=== PATIENT | female | born 1975 | race Caucasian/White ===

== ENCOUNTER 2018-11-20 05:19 | Emergency (ER) | payer OTHER ==
[2018-11-20 05:53] VITALS: BMI 23.1
[2018-11-20] MEDS ORDERED: ALBUTEROL SO4 2.5/IPRATROPIUM 0.5 INH SOL 3 ML VIAL.NEB. NEB ONE ×2 (08:08→08:12)
--- NOTE | 2018-11-20 08:18 | PDOC ---
History of Present Illness - General Chief Complaint: Cold Symptoms Stated Complaint: COUGHING, SOB Time Seen by Provider: 11/20/18 07:15 History Source: Patient Exam Limitations: No Limitations - History of Present Illness Initial Comments: 11/20/18 08:09 43y F hx of seasonal allergies presents with complaint of nonproductive cough for the last month. The cough is tends to be worse in the evening. There is some chest pain when she is coughing, but she denies any campbell, hemoptysis, leg swelling, recent sick contacts/travel. Pt notes some mucus in her nose intermittently. denies any body aches, back pain, abd pain, vomiting, diarrheam melena, bpr, calf pain. 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 Constitutional - no reported Fever, Chills, HEENT: no reported vision changes, sore throat Respiratory: +cough, no reported sob, hemoptysis Cardiac: no reported chest pain, palpitations, light headedness, leg swelling Abd/GI: no reported abd pain, nausea, vomiting, blood per rectum, melena, diarrhea : no reported dysuria, frequency, discharge Musculskelatal - no reported back pain, joint swelling skin - no reported bruising, erythema, rash neurological: no reported headache, numbness, focal weakness, tingling, ataxia, hematologic: no reported easy bruising, easy bleeding GENERAL: The patient is awake, alert, and fully oriented, Nontoxic - in no acute distress. HEAD: Normocephalic, atraumatic. EYES: extraocular movements intact, sclera anicteric, conjunctiva clear. ENT: Normal voice, Moist mucous membranes. NECK: Normal range of motion, supple LUNGS: Breath sounds equal, clear to auscultation bilaterally. No wheezes, no rhonchi, no rales. HEART: Regular rate and rhythm, normal S1 and S2 without murmur, rub or gallop. ABDOMEN: Soft, nontender, No guarding, no rebound. No CVA tenderness EXTREMITIES: Normal range of motion, no edema. note calf tenderness, negative Homans sign NEUROLOGICAL: No facial assymetry, Normal speech, PSYCH: Normal mood, normal affect. SKIN: Warm, Dry, normal turgor, differential for the patient's cough includes viral syndrome, versus bronchus spasm onsider possible pneumonia, chemical pneumonitis will obtain cxr to r/o pna ekg to scren for acs will give a duo neb to see if it may help with bronchospasm Past History - Past Medical History Allergies/Adverse Reactions: Allergies Allergy/AdvReac Type Severity Reaction Status Date / Time aspirin Allergy Verified 01/11/18 17:24 Home Medications: Ambulatory Orders Albuterol Sulfate Inhaler - [Ventolin HFA Inhaler -] 1 - 2 inh PO Q4H PRN #1 inhaler 11/20/18 Benzonatate [Tessalon Pearls -] 100 mg PO TID PRN #21 capsule 11/20/18 COPD: No - Surgical History Abdominal Surgery: Yes (hernia repair) - Suicide/Smoking/Psychosocial Hx Smoking History: Never smoked Have you smoked in the past 12 months: No Information on smoking cessation initiated: No Hx Alcohol Use: No Drug/Substance Use Hx: No *Physical Exam - Vital Signs Last Vital Signs Temp Pulse Resp BP Pulse Ox 98.7 F 80 16 99/60 97 11/20/18 05:19 11/20/18 07:57 11/20/18 07:57 11/20/18 07:57 11/20/18 07:57 Heart Score/ECG Review - ECG Impressions Comment:: 11/20/18 10:02 Twelve-lead EKG was performed and reviewed by me. There is normal sinus rhythm with a normal rate. rate of 71 ED Treatment Course - RADIOLOGY Radiology Studies Ordered: Category Date Time Status CHEST PA & LAT [RAD] Stat Radiology 11/20/18 08:08 Ordered Medical Decision Making - Medical Decision Making 11/20/18 09:56 he patient is feeling improved the patient's chest x-ray is negative. will dc her with al albuterol pump - her sx may be due to work environment as she states coughing is worse at work and improves when she leaves the premesis. will have her use appropriate protection will have her fu with pmd return precautions were discussed I discussed the physical exam findings, ancillary test results and final diagnoses with the patient. I answered all of the patient's questions. The patient was satisfied with the care received and felt comfortable with the discharge plan and treatment plan. The patient will call their primary care physician within 24 hours to arrange follow-up and will return to the Emergency Department with any new, persistent or worsening symptoms. *DC/Admit/Observation/Transfer Diagnosis at time of Disposition: Cough - Discharge Dispostion Disposition: HOME Condition at time of disposition: Improved Decision to Admit order: No - Prescriptions Prescriptions: Albuterol Sulfate Inhaler - [Ventolin HFA Inhaler -] 1 - 2 inh PO Q4H PRN #1 inhaler PRN Reason: Cough Benzonatate [Tessalon Pearls -] 100 mg PO TID PRN #21 capsule PRN Reason: Cough - Referrals Referrals: [facility] [Provider Group] - Patient Instructions Printed Discharge Instructions: DI for Cough -- Adult Additional Instructions: Regrese al departamento de emergencias inmediatamente con CUALQUIER sntoma nuevo, persistente o que empeore, incluyendo empeoramiento de la respiracin, dolor en el pecho, fiebre o cualquier otra inquietud. Por favor, use la proteccin adecuada en el trabajo. Use el inhalador para mitchel si le ayuda con swenson tos. DEBE llamar y hacer un seguimiento con swenson mdico en 3 a 4 benitez para ramonita evaluacin adicional de oli sntomas. Los resultados fueron discutidos con usted. Asegrese de que swenson mdico revise los resultados de swenson evaluacin de emergencia. Swenson visita al Departamento de Emergencias no est completa sin un seguimiento con swenson mdico. Return to the emergency department immediately with ANY new, persistent or worsening symptoms ncluding worsening shortness of breath, chest pain,fever or any other concerns Please use the appropriate protection at work. Use the inhaler to see if helps with your cough. You MUST call and follow up with your doctor in 3-4 days for further evaluation of your symptoms. Results were discussed with you. Please make sure your doctor reviews the results of your emergency evaluation. Your Emergency Department visit is not complete without a follow up with your doctor. Print Language: YI - Post Discharge Activity
[2018-11-20 10:31] VITALS: BP 102/65; PULSE 75; TEMP 97.6
--- NOTE | 2018-11-20 15:17 | EKG ---
Test Reason : Blood Pressure : / mmHG Vent. Rate : 071 BPM Atrial Rate : 071 BPM P-R Int : 160 ms QRS Dur : 122 ms QT Int : 428 ms P-R-T Axes : 065 087 048 degrees QTc Int : 465 ms NORMAL SINUS RHYTHM RIGHT BUNDLE BRANCH BLOCK ABNORMAL ECG WHEN COMPARED WITH ECG OF 11-JAN-2018 18:38, NO SIGNIFICANT CHANGE WAS FOUND Confirmed by JOSEPH JULES MD ([id number]) on 11/20/2018 3:17:13 PM Referred By: Confirmed By:JOSEPH JULES MD
== END 2018-11-20 10:33 | disposition home or self-care (01) ==
LOC: JER 05:19
PROC: 3E0F7GC Introduction of Other Therapeutic Substance into Respiratory Tract, Via Natural or Artificial Opening (ICD-10-PCS; principal; 2018-11-20)
DX: R05 Cough (principal)
CPT/HCPCS: 71046-TC-FY; 93005; 93010; 99282-25

== ENCOUNTER 2019-02-02 15:44 | Emergency (ER) | payer OTHER ==
[2019-02-02 16:15] VITALS: BP 117/62; PULSE 84; TEMP 98.6; BMI 22.4
--- NOTE | 2019-02-02 16:20 | PDOC ---
History of Present Illness - General Chief Complaint: Shortness of Breath Stated Complaint: SOB - History of Present Illness Initial Comments: The pt is a 43F w/ a history of RBBB, HAs, and varicose veins s/p procedural correction in the [facility] who presents for evaluation of GORE, N/V, chest pain, SOB, dysuria, and left leg pain. The pt reports her GORE is global but worse on the left/frontal, throbbing, w/o sudden onset, associated with nausea and vomiting x1 today, and was mildly alleviated by Tylenol. Her chest pain and SOB began while at rest, the pain was a 'pinch', non-radiating, started at rest/resolved spontaneously, and is not exacerbated or alleviated by anything she can identify. Her left leg pain has been intermittent for the last 6 months, is where she had her varicose procedure, and is not exacerbated or alleviated by anything she can identify. She endorses dysuria. She denies fevers, vision changes, weakness, new changes in sensation, diarrhea , or blood in her stool. Denies OCP, cancer, recent travel, or history of DVT/PE 02/02/19 17:18 Past History - Past Medical History Allergies/Adverse Reactions: Allergies Allergy/AdvReac Type Severity Reaction Status Date / Time aspirin Allergy Verified 01/11/18 17:24 Home Medications: Ambulatory Orders Albuterol Sulfate Inhaler - [Ventolin HFA Inhaler -] 1 - 2 inh PO Q4H PRN #1 inhaler 11/20/18 Benzonatate [Tessalon Pearls -] 100 mg PO TID PRN #21 capsule 11/20/18 Metoclopramide HCl [Reglan -] 10 mg PO BID PRN #14 tablet 02/02/19 COPD: No - Surgical History Abdominal Surgery: Yes (hernia repair) - Psycho Social/Smoking Cessation Hx Smoking History: Never smoked Have you smoked in the past 12 months: No Hx Alcohol Use: No Drug/Substance Use Hx: No Review of Systems - Review of Systems Able to Perform ROS?: Yes Comments:: GENERAL/CONSTITUTIONAL: No fever or chills. No weakness HEAD, EYES, EARS, NOSE AND THROAT: No change in vision. No change in hearing. No sore throat CARDIOVASCULAR: +intermittent chest pain/SOB RESPIRATORY: Denies cough, hemoptysis GASTROINTESTINAL: +N/V; Denies diarrhea or constipation GENITOURINARY: +dysuria, denies frequency, or change in urination MUSCULOSKELETAL: No joint or muscle swelling or pain. No neck or back pain SKIN: No rash NEUROLOGIC: No headache, vertigo, loss of consciousness, or change in strength/ sensation ENDOCRINE: No increased thirst. No abnormal weight change HEMATOLOGIC/LYMPHATIC: No anemia, easy bleeding, or history of blood clots ALLERGIC/IMMUNOLOGIC: No hives or skin allergy 02/02/19 16:20 Is the patient limited Mauritanian proficient: Yes *Physical Exam - Vital Signs Last Vital Signs Temp Pulse Resp BP Pulse Ox 98.6 F 84 19 117/62 100 02/02/19 16:07 02/02/19 16:07 02/02/19 16:07 02/02/19 16:07 02/02/19 16:07 - Physical Exam Comments: GENERAL: Awake, alert, and oriented to person/place/time, in no acute distress HEAD: No signs of trauma, normocephalic, atraumatic EYES: PERRLA, EOMI, sclera anicteric, conjunctiva clear ENT: Hearing grossly normal, nares patent, oropharynx clear without exudates. Moist mucosa LUNGS: No distress, speaks in full sentences, clear to auscultation bilaterally HEART: Regular rate and rhythm, normal S1 and S2, no murmurs appreciated, peripheral pulses normal and equal bilaterally ABDOMEN: Soft, mild suprapubic TTP w/o rebound or guarding, normoactive bowel sounds EXTREMITIES: Normal inspection, Normal range of motion, no edema. No clubbing or cyanosis NEUROLOGICAL: Cranial nerves II through XII grossly intact. Normal speech, normal gait, no focal sensorimotor deficits SKIN: Warm, Dry 02/02/19 16:20 ED Treatment Course - LABORATORY CBC & Chemistry Diagram: 02/02/19 17:00 02/02/19 17:00 Medical Decision Making - Medical Decision Making The pt is a 43F w/ a history of RBBB and HAs who presents for evaluation of GORE, chest pain, SOB, dysuria, and left leg pain ED Course Labs sent ECG CXR IVF, benadryl, reglan, ofirmev, zofran for symptomatic relief Will reassess 02/02/19 17:25 Pt refused tylenol and zofran Lytes wnl No leukocytosis No anemia Trop I neg B-hCG neg ECG w/ RBBB (seen previously); no axis deviation, HR 78; QTc 478; no ischemic changes Pending UA, CXR 02/02/19 18:17 UA w/o evidence of UTI Pt feels improved Plan for D/C w/ PCP f/u Discharge instructions and return precautions given Pt in agreement and verbalized understanding Dispo: home 02/02/19 23:10 Discharge - Discharge Information Problems reviewed: Yes Clinical Impression/Diagnosis: Headache Qualifiers: Headache type: unspecified Headache chronicity pattern: unspecified pattern Intractability: not intractable Qualified Code(s): R51 - Headache Chest pain Qualifiers: Chest pain type: unspecified Qualified Code(s): R07.9 - Chest pain, unspecified Condition: Stable Disposition: HOME - Admission No - Additional Discharge Information Prescriptions: Metoclopramide HCl [Reglan -] 10 mg PO BID PRN #14 tablet PRN Reason: Headache - Follow up/Referral - Patient Discharge Instructions Patient Printed Discharge Instructions: DI for Migraine Additional Instructions: You were seen in the Emergency Department for evaluation of headache, chest pain , trouble breathing, and leg pain. Your labs and imaging were unremarkable. Review the handout provided at discharge. A prescription for Reglan was sent to the pharmacy that you specified. Take if the Tylenol is not sufficient for your headaches. Follow up with your primary care provider within a week. Return to the Emergency Department if you develop fevers/chills, vision changes, inability to tolerate liquids, blood in your stool or vomit, worsening symptoms , or any new/concerning symptoms. Usted fue visto en el Departamento de Emergencia para ramonita evaluacin de dolor de roel, dolor en el pecho, dificultad para respirar y dolor en las piernas. Meche laboratorios e imgenes no fueron notables. Revise el folleto proporcionado al bethany. Se envi ramonita receta para Reglan a la farmacia que especific. Tmelo si el Tylenol no es suficiente para meche verna de roel. Ko un seguimiento con swenson proveedor de atencin primaria dentro de ramonita semana. Regrese al Departamento de Emergencias si desarrolla fiebre / escalofros, cambios en la visin, incapacidad para tolerar lquidos, marsha en las heces o vmitos, empeoramiento de los sntomas o cualquier sntoma nuevo o preocupante. Print Language: CROATIAN - Post Discharge Activity
[2019-02-02] MEDS ORDERED: METOCLOPRAMIDE HCL INJECTION 10 MG/2 ML VIAL ONE (16:52)
[2019-02-02] MEDS ORDERED: METOCLOPRAMIDE HCL INJECTION 10 MG/2 ML VIAL IVPUSH ONE (17:06)
[2019-02-02] MEDS ORDERED: ONDANSETRON 4 MG/2 ML VIAL IVPUSH ONE (17:06)
[2019-02-02] MEDS ORDERED: ACETAMINOPHEN 1000 MG/100 ML VIAL (NON FORMULARY) IVPB ONE (17:06)
[2019-02-02] MEDS ORDERED: SODIUM CHLORIDE 0.9% 500 ML INFUS.BAG IV ONE (17:06)
[2019-02-02] MEDS ORDERED: ONDANSETRON 4 MG/2 ML VIAL ONE (17:15)
[2019-02-02 17:18] LABS: BASO % 0.7 % (0-2.0); EOS % 1.2 % (0-4.5); HEMATOCRIT 36.8 % (32.4-45.2); HEMOGLOBIN 12.1 GM/dL (10.7-15.3); LYMPH % 18.5 % (8-40); MCH 26.6 pg (25.7-33.7); MCHC 32.8 g/dl (32.0-36.0); MEAN PLT VOLUME 9.5 fl (7.5-11.1); MONO % 7.3 % (3.8-10.2); NEUT % 72.3 % (42.8-82.8); PLATELET COUNT 254 K/MM3 (134-434); RBC 4.54 M/mm3 (3.60-5.2); RDW 22.5 % (11.6-15.6); WHITE BLOOD COUNT 8.7 K/mm3 (4.0-10.0)
[2019-02-02 18:07] LABS: ALK PHOS 45 U/L (45-117); ANION GAP 7 MMOL/L (8-16); BILIRUBIN,TOTAL 0.4 mg/dL (0.2-1); CALCIUM 9.5 mg/dL (8.5-10.1); CHLORIDE 107 mmol/L (98-107); CO2 25 mmol/L (21-32); CREATININE 0.6 mg/dL (0.55-1.3); GLUCOSE,RANDOM 85 mg/dL (74-106); SGOT/AST 10 U/L (15-37); SGPT/ALT 16 U/L (13-61); SODIUM 139 mmol/L (136-145); TOT PROT 7.6 g/dl (6.4-8.2)
[2019-02-02 18:17] LABS: ANISOCYTOSIS 3+; PLATELET ESTIMATE NORMAL
--- NOTE | 2019-02-02 18:55 | PDOC ---
Documentation entered by Imani Mendez SCRIBE, acting as scribe for Jennifer De La Torre MD. Jennifer De La Torre MD: This documentation has been prepared by the Andrea cheng Brenda, SCRIBE, under my direction and personally reviewed by me in its entirety. I confirm that the documentation accurately reflects all work, treatment, procedures, and medical decision making performed by me. Attending Attestation - Resident Resident Name: MariongenovevaEverette - ED Attending Attestation I have performed the following: I have examined & evaluated the patient, The case was reviewed & discussed with the resident, I agree w/resident's findings & plan, Exceptions are as noted - HPI HPI: 02/02/19 17:45 The patient is a 43 year old female, with a significant PMH of right bundle branch block ad headaches who presents to the emergency department with complaints of a 1 day of a global headache associated with nausea and vomiting, which is worsened on the left side. Patient reports taking tylenol and being mildly alleviated. The patient also endorses chest pain with shortness of breath , which she notes began at rest and resolved suddenly, but is non-radiating, and not alleviated or aggravated by anything. She also endorses left leg pain, for the past 6 months, and dysuria. Daly Vision changes and weakness. Denies fever, diarrhea and constipation. Denies frequency, urgency and hematuria. Allergies: NKA Past surgical history: Hernia Repair Social history: No reported hx of tobacco use, alcohol use or illicit drug use. - Physicial Exam PE: 02/02/19 17:47 GENERAL: Well-appearing, well-nourished. No apparent distress. HEENT: Normocephalic, atraumatic. PERRL, EOM intact. CARDIOVASCULAR: Normal S1, S2. Regular rate and rhythm. PULMONARY: Clear to auscultation bilaterally. ABDOMEN: Soft, non-distended, non-tender. EXTREMITIES: Normal ROM in all four extremities. No gross deformities. SKIN: Warm, dry. No rash NEUROLOGICAL: No focal neurological deficits. - Medical Decision Making 02/02/19 18:28 ekg RBBB , 78 bpm 02/02/19 18:54 cbc no leukocytosis, no anemia chemistries unremarkable negative test
[2019-02-02 19:00] LABS: PH,URINE 5.5 (5.0-8.0); URINE APPEARANCE CLEAR; URINE BILIRUBIN NEGATIVE (NEGATIVE); URINE COLOR YELLOW; URINE GLUCOSE (UA) NEGATIVE (NEGATIVE); URINE KETONE TRACE (NEGATIVE); URINE LEUK ESTERASE NEGATIVE (NEGATIVE); URINE NITRITE NEGATIVE (NEGATIVE); URINE PROTEIN NEGATIVE (NEGATIVE); URINE UROBILINOGEN 0.2 mg/dL (0.2-1.0)
--- NOTE | 2019-02-03 10:05 | EKG ---
Test Reason : Blood Pressure : / mmHG Vent. Rate : 078 BPM Atrial Rate : 078 BPM P-R Int : 144 ms QRS Dur : 136 ms QT Int : 420 ms P-R-T Axes : 070 084 048 degrees QTc Int : 478 ms SINUS RHYTHM WITH MARKED SINUS ARRHYTHMIA RIGHT BUNDLE BRANCH BLOCK ABNORMAL ECG WHEN COMPARED WITH ECG OF 20-NOV-2018 08:16, NO SIGNIFICANT CHANGE WAS FOUND Confirmed by Joe Almazan MD ([id number]) on 02/03/2019 10:04:54 AM Referred By: Confirmed By:Joe Almazan MD
== END 2019-02-02 20:00 | disposition home or self-care (01) ==
LOC: JER 15:44
PROC: 3E033GC Introduction of Other Therapeutic Substance into Peripheral Vein, Percutaneous Approach (ICD-10-PCS; principal; 2019-02-02)
DX: R51 Headache (principal); R07.9 Chest pain, unspecified; R30.0 Dysuria; M79.605 Pain in left leg; R11.2 Nausea with vomiting, unspecified; I45.10 Unspecified right bundle-branch block; Z88.6 Allergy status to analgesic agent
CPT/HCPCS: 36415; 71046-TC-FY; 80053; 81003; 84484; 84702; 85025; 87086; 93005; 93010; 96374; 96375; 99283-25

== ENCOUNTER 2019-02-12 21:31 | Emergency (ER) | payer OTHER ==
[2019-02-12 21:42] VITALS: BP 113/41; PULSE 67; TEMP 97.6
[2019-02-12] MEDS ORDERED: oxyCODONE HCL 5 MG TABLET PO ONE (22:33)
--- NOTE | 2019-02-12 22:33 | PDOC ---
Documentation entered by Kurt Brunner SCRIBE, acting as scribe for Isabelle Ornelas MD. Isabelle Ornelas MD: This documentation has been prepared by the bebaibeKannan Daniel, SCRIBE, under my direction and personally reviewed by me in its entirety. I confirm that the documentation accurately reflects all work, treatment, procedures, and medical decision making performed by me. History of Present Illness - General Chief Complaint: Pain, Acute Stated Complaint: LT CALF PAIN History Source: Patient, Spouse Exam Limitations: No Limitations - History of Present Illness Initial Comments: 02/12/19 22:10 The patient is a 43 year old female with a past medical history of varicose veins here today for evaluation of left calf pain. The patient reports that her left calf pain began this morning around 7 AM this morning and notes calf swelling as well. family history notable for blood clots in mother denies trauma or exertional activity no infectious sx. Patient denies headache, lightheadedness. Denies fever, chills. Denies chest pain, shortness of breath. Denies nausea, vomiting, diarrhea, abdominal pain. Allergies: aspirin (anaphylaxis) PCP: Bryant MARTINEZ Constitutional: no fevers or chills. No weakness HEENT: no headache or dizziness. No congestion. No visual/hearing disturbances. CVS: no cp or syncope. Resp: no sob. No cough. Gastrointestinal: no abdominal pain MUSCULOSKELETAL: +left calf pain and swelling. No neck or back pain. SKIN: no redness or skin changes, no discharge, no rash. No wounds. Hematologic: no easy bruising/bleeding. NEUROLOGIC: No headache, dizziness, LOC or altered mental status. No weakness, numbness or tingling. Psych: no anxiety or depression Allergic/Immunologic: asa allergies All other systems reviewed and negative, or as documented in HPI. Physical exam: General: Well appearing, awake and alert, NAD. HEENT: NCAT, PERRL, EOMI, clear conjunctiva, anicteric, moist mucus membranes, clear oropharynx, no oral lesions.. Neck: neck supple, FROM Resp: CTAB, normal and even respirations, no respiratory distress CVS: RRR, no murmurs, 2+ peripheral pulses throughout, no peripheral edema Abdomen: soft, NTND, no rebound or guarding. No CVAT. Back: nontender, normal inspection and ROM MSK: +left calf tenderness to palpation. +venous tortuosities. ROBERTS x4, ROM intact. No clubbing or cyanosis. normal bulk and tone. 5/5 plantar and dorsiflexion, SILT in all extrem. no prox joint tenderness, no knee joint tenderness, no laxity. Neuro: alert, oriented appropriately; no focal neurologic deficits Psych: Calm and cooperative Skin: warm and well perfused, cap refill <2 sec, normal color 02/12/19 22:33 02/12/19 23:47 02/12/19 23:48 Past History - Past Medical History Allergies/Adverse Reactions: Allergies Allergy/AdvReac Type Severity Reaction Status Date / Time aspirin Allergy Verified 01/11/18 17:24 Home Medications: Ambulatory Orders Oxycodone HCl 10 mg PO Q6H PRN #12 tablet MDD 4 02/12/19 COPD: No - Surgical History Abdominal Surgery: Yes (hernia repair) - Psycho Social/Smoking Cessation Hx Smoking History: Never smoked Have you smoked in the past 12 months: No Hx Alcohol Use: No Drug/Substance Use Hx: No *Physical Exam - Vital Signs Last Vital Signs Temp Pulse Resp BP Pulse Ox 97.6 F 67 16 113/41 L 100 02/12/19 21:37 02/12/19 21:37 02/12/19 21:37 02/12/19 21:37 02/12/19 21:37 ED Treatment Course - RADIOLOGY Radiology Studies Ordered: Category Date Time Status DUPLEX VASCUL US-1 LEG [US] Stat Ultrasound 02/12/19 21:45 Ordered Medical Decision Making - Medical Decision Making 02/12/19 23:37 Vital Signs Temp Pulse Resp BP Pulse Ox 97.6 F 67 16 113/41 L 100 02/12/19 21:37 02/12/19 21:37 02/12/19 21:37 02/12/19 21:37 02/12/19 21:37 Vital signs reviewed, within normal limits. Differential diagnosis includes : msk strain, varicose veins DVT, superficial thrombophlebitis, hematoma. Low suspicion for compartment syndrome, NVI and no neuro deficits. low suspicion for vascular abnormality or infection. Duplex of the affected left lower extremity negative for DVT. Given her allergy to NSAIDs/aspirin with what sounds like anaphylaxis will provide some oxycodone for pain relief in addition to Tylenol for mild to moderate pain relief. Advised to follow-up with primary care doctor. Compression, ambulation encouraged. If symptoms persist greater than 1 week, return for repeat imaging. Discharge - Discharge Information Problems reviewed: Yes Clinical Impression/Diagnosis: Leg pain, left, Varicose veins of left lower extremity Condition: Stable Disposition: HOME - Admission No - Additional Discharge Information Prescriptions: Oxycodone HCl 10 mg PO Q6H PRN #12 tablet MDD 4 PRN Reason: Severe Pain - Follow up/Referral Referrals: Tommie Mace [Primary Care Provider] - - Patient Discharge Instructions Patient Printed Discharge Instructions: DI for Varicose Veins, DI for Leg Pain Additional Instructions: 1) Please follow-up with your primary care doctor in the next 1-2 days. Please call tomorrow for for any urgent issues. if your symptoms. of lower leg pain swelling or other progressive symptoms > 1 week, return in 5-7 days for repeat ultrasound. 2) You were given a copy of the tests performed today. Please bring the results with you and review them with your primary care doctor. Your laboratory / imaging results were normal, including ultrasound of leg 3) If you have any worsening of symptoms or any other concerns please return to the ED immediately. Return if worsening symptoms including fevers, headache, vomiting, visual or hearing disturbances, abdominal pain, chest pain, shortness of breath, syncope, dehydration, inability to take things by mouth/vomiting, altered mental status, or worsening concerning symptoms. 4) Please continue taking your home medications as directed. your medications on discharge include_ . side effects may include upset stomach, abdominal pain, vomiting, or diarrhea. do not drink alcohol with your medications. Please take ACETAMINOPHEN (aka Tylenol) 650-975 mg every 6 hours, as needed, for pain. Will discharge patient with a short course of opiates. Went over the risks of the medication. Advised patient to not mix with other products containing acetaminophen, to not combine with alcohol, or other illicit drugs, to not drive or operate machinery, and to refrain from any activity that will require complete attention while taking this medication. Please take one tablet of OXYCODONE every 6 hours, as needed for SEVERE pain. Please do not take this medication unless you absolutely need it, it is very addictive. Please do not drive, operate heavy machinery or make important decisions while on this medication, it can cloud your judgement. this can also cause constipation so make sure to stay hydrated and use stool softener as needed. Stay well hydrated and rest adequately. Make an appointment. If you cannot follow-up with your primary care doctor please return to the ED ----- 1) Ko un seguimiento con swenson mdico de atencin primaria en los prximos 1-2 benitez. Llame maana para cualquier problema urgente. Si oli sntomas. de inflamacin del dolor en la parte inferior de la pierna u otros sntomas progresivos> 1 semana, regrese en 5-7 benitez para repetir la ecografa. 2) Le dieron ramonita copia de las pruebas realizadas hoy. Traiga los resultados con usted y revselos con swenson mdico de atencin primaria. Los resultados de swenson laboratorio / imagen fueron normales, incluida la ecografa de la pierna. 3) Si tiene algn empeoramiento de los sntomas o cualquier otra inquietud, regrese al servicio de urgencias de inmediato. Regrese si los sntomas empeoran , sonia fiebre, dolor de roel, vmitos, trastornos visuales o auditivos, dolor abdominal, dolor en el pecho, dificultad para respirar, sncope, deshidratacin , incapacidad para zack cosas por la boca / vmitos, estado mental alterado o empeoramiento de los sntomas. 4) Contine tomando oli medicamentos caseros segn las indicaciones. oli medicamentos al [place] incluyen_. Los efectos secundarios pueden incluir malestar estomacal, dolor abdominal, vmitos o diarrea. No tome alcohol con oli medicamentos. [place] ACETAMINOPHEN (tambin conocido sonia Tylenol) 650-975 mg cada 6 horas, segn sea necesario, para el dolor. Jvuencio de beth[place] al paciente con un ciclo corto de opiceos. Excedi los riesgos de la medicacin. Aconsej al paciente que no se mezcle con otros productos que contengan acetaminofn, que no se combine con alcohol u otras drogas ilcitas, que no conduzca ni maneje maquinaria, y que se abstenga de realizar cualquier actividad que requiera atencin completa mientras shanda florin medicamento. [place] ramonita tableta de OXYCODONE cada 6 horas, segn sea necesario para el dolor GRAVE. No tome florin medicamento a menos que lo necesite absolutamente, es muy adictivo. No maneje, opere maquinaria pesada ni tome decisiones importantes mientras shanda florin medicamento, puede nublar swenson juicio. [place] tambin puede causar estreimiento, as que asegrese de mantenerse hidratado y use ablandador de heces segn sea necesario. Mantngase melida hidratado y descanse adecuadamente. Ko ramonita fran Si no puede hacer un seguimiento con swenson mdico de atencin primaria, regrese al servicio de urgencias Print Language: NIGERIEN - Post Discharge Activity
[2019-02-12] MEDS ORDERED: oxyCODONE HCL 5 MG TABLET ONE (22:34)
== END 2019-02-12 23:48 | disposition home or self-care (01) ==
LOC: SUPCPDRO 21:31 → FER 21:31
DX: M79.662 Pain in left lower leg (principal); I83.92 Asymptomatic varicose veins of left lower extremity
CPT/HCPCS: 93971-TC; 99282-25